=== PATIENT | female | born 1955 | race Caucasian/White ===

== ENCOUNTER 2020-08-21 15:10 | Outpatient (CLI) | payer BC, SELFPAY ==
--- NOTE | ~2020-08-21 | US_ITS ---
EXAMINATION: US pelvic complete w TV DATE: 08/21/2020 15:43 INDICATION: Postmenopausal bleeding for 2 months Comparison:No prior studies for comparison. TECHNIQUE: Multiple transabdominal and endovaginal sonographic images of the pelvis performed. FINDINGS: The uterus measures 9.8 x 5.5 x 5.1 cm. The endometrial complex measures 3.1 cm. The endome trium is thickened and heterogeneous with internal vascularity. The ovaries are not visualized, likel y atrophic. There is no free fluid in the pelvis. There are no abnormal masses seen on either side. IMPRESSION: 1. Thickened heterogeneous vascular endometrium. Differential diagnosis includes endometrial hyperpla alex, polyp and carcinoma. Biopsy is recommended. Reviewed, dictated and finalized at location B. REGULATOR IMPRESSION: 1. Thickened heterogeneous vascular endometrium. Differential diagnosis include s endometrial hyperplasia, polyp and carcinoma. Biopsy is recommended.
== END 2020-08-21 15:11 ==
PROVIDERS: Visit Provider Obstetrics & Gynecology
DX: N93.9 Abnormal uterine and vaginal bleeding, unspecified (principal)
CPT/HCPCS: 76830; 76856

== ENCOUNTER 2022-01-07 13:30 | Outpatient (RCR) | payer OTHER, SELFPAY ==
--- NOTE | 2021-12-22 14:03 | OTOPEVAL ---
OCCUPATIONAL THERAPY INITIAL EVALUATION REPORT 12/22/21 Thank you for referring Radha Puga to [facility].? The patient is scheduled to be seen for therapy? 2x/week for 3 weeks. Please review, sign, date and return this plan of care ELMO. I agree with and certify that the following plan of care is medically necessary. 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 She reports her symptoms have stayed relatively the same since her treatment ended in Apr 2021. She takes Gabapentin and supplements for nerve pain. She has constant tingling in the hands and feet . 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 Prior Level of Function Activity Level (Last 3 Months) Hand Dominance Right Activity of Daily Living Ability Independent Indoor/Home Mobility Independent Stairs Ability Independent Cooking No Cleaning No Laundry No Shopping No Driving No Home Setting Home Type Condo/Duplex/Townhouse Environmental Barriers Railing, Ascend Left,Railing, Ascend Right,Stairs, Greater than 4 Living Situation With Adult Child Mobility Assistive Devices (Used Last 3 Cane, Small Based Quad Months) Bathroom Environment Tub/Shower, Curtain Bathing Equipment Tub Seat Without Back Comments Additional Prior Level of Function Patient lives with her Comments daughter in a 2 story duplex. Her daughter takes care of cooking, cleaning, and laundry . She does some light cooking, but reports she has difficulty standing for long periods of time. Pain Assessment Timing of Pain Assessment Timing of Pain Assessment Assessment Pain Scale Pain Scale Used Numeric (1 - 10) Self Report Pain Assessment Bilateral Foot/Feet Reported Pain Level
--- NOTE | 2021-12-22 15:20 | PTOPEVAL ---
PHYSICAL THERAPY INITIAL EVALUATION. Thank you for referring Radha Puga to [facility].? The patient is scheduled to be seen for therapy? 2x/week for 3 weeks. Please review, sign, date and return this plan of care ELMO. I agree with and certify that the following plan of care is medically necessary. Referring Physician Date Attending Provider: Richard Romero *PT Outpatient Evaluation Start: 12/22/21 Evaluation Information Diagnosis Neuropathy d/t chemotherapy Onset 1 year Subjective Information Pt states she started Query Text:As Reported By Patient/ chemotherapy in November of 2020 Family and a few treatments in she began to have neuropathy in her toes and the ball of her foot bilaterally R>L. She reports numbness and occasional shooting pain along the lateral aspect of her R foot. Pt reports her balance is pretty good with shoes on, it is notable worse without shoes, she has increased pain and swelling. She reports getting up about 4 -5 times a day. She states her worst pain is when her toes feel like they are breaking. Pain Assessment Bilateral Foot/Feet Reported Pain Level 5 Pain Description Numbness,Pressure,Tingling Lowest Pain Intensity 4 Greatest Pain Intensity 9 Lower Extremity Range of Motion Gross Lower Extremity Range of Motion L ankle dorsiflexion active 4deg R ankle dorsiflexion active 0 deg Lower Extremity Muscle Strength Testing Gross Lower Extremity Strength BLE grossly 4+/5 Balance Assessment Sosa Balance Assessment SOSA Balance Evaluation Total Score (/56 49/56 Time Up Go (TUG) Timed Up and Go Test (TUG) (Seconds) 13 Assistive Devices None Dynamic Gait Index Total Score (/24) Gait Assessment Ambulation Assistive Devices None Gait Pattern Ataxic Gait,Trendelenburg Gait Gait Pattern Observed Decreased Stride Length - Left ,Decreased Stride Length - Right,No Heel Strike - Left,No Heel Strike - Right,Trunk Lateral Lean - Left,Trunk Lateral Lean - Right 2 Minute Walk Total Distance Walked (feet) 315 2 Minute Walk Gait Speed Score (feet/sec) 2.62 Stair Climbing Assessment Stair Climbing Assistive Devices Railings Stair Climbing
--- NOTE | 2021-12-31 13:29 | PCPTNOTE ---
Patient called & cancelled scheduled appointment this date due to can't make it.
--- NOTE | 2021-12-31 14:24 | PCOTNOTE ---
Patient called & cancelled scheduled appointment this date due. States that she can't make it today.
--- NOTE | 2022-01-11 11:42 | PCOTNOTE ---
Patient called & cancelled scheduled appointment this date due to not having transportation.
--- NOTE | 2022-01-11 12:48 | PCPTNOTE ---
Patient called & cancelled scheduled appointment this date due to no transportation.
--- NOTE | 2022-01-11 16:03 | PCOTNOTE ---
OCCUPATIONAL THERAPY DISCHARGE NOTIFICATION 01/11/22 Patient:Radha Puga Date of :1955 Patient has not returned for any further treatments since 01/07/2022, therefore she will be discharged at this time. The patient called and cancelled her remaining visits due to not having transportation. Patient?s initial visit was on 12/22/2021 and she had a total of 4 visits. She was independent with HEP and making progress with functional strength and coordination of her UEs. Thank you for referring this patient to [facility]. Please review, sign, date and return this discharge summary ELMO. I have been updated about the patient's current status and I agree with discharge from the above service at this time. Referring Physician Date Referring Provider: Richard Romero MD
--- NOTE | 2022-01-12 12:31 | PCPTNOTE ---
Attending Provider: Richard Romero Patient:Radha Puga Date of :1955 PHYSICAL THERAPY DISCHARGE SUMMARY. The patient called and cancelled her remaining visits due to not having transportation to make it to her appointments. Patient?s initial visit was on 12/22/2021 13:00 and she had a total of 4 visits. She has been progressing well towards therapy goals. Thank you for referring this patient to [facility]. Please review, sign, date and return this discharge summary ELMO. I have been updated about the patient's current status and I agree with discharge from the above service at this time. Referring Physician Date
== END 2022-01-12 15:04 | disposition home or self-care (01) ==
LOC: ANHPT 13:30
DX: G62.0 Drug-induced polyneuropathy (principal)
CPT/HCPCS: 97110; 97161; 97165; 97530